=== PATIENT | female | born 1965 | race Caucasian/White ===

== ENCOUNTER 2022-08-15 06:28 | Day surgery (SDC) | payer OTHER ==
[2022-08-15] MEDS: Ringers Lactate 1,000 ML IV ONE ×2 (06:45→07:51)
[2022-08-15] MEDS ORDERED: OXYMETAZOLINE HCL 0.05% 15ML NAS ONE ×2 (07:04→07:33)
[2022-08-15] MEDS ORDERED: FENTANYL CITR 100 MCG/2 ML ONE (07:20)
[2022-08-15] MEDS ORDERED: propofoL 200 MG/20 ML VIAL IV ONE (07:20)
[2022-08-15] MEDS ORDERED: ONDANSETRON 4 MG/2 ML VIAL ONE (07:21)
[2022-08-15] MEDS ORDERED: MIDAZOLAM HCL 2 MG/2 ML INJ ONE (07:21)
[2022-08-15] MEDS ORDERED: ROCURONIUM 50 MG/5 ML VIAL IV ONE (07:21)
[2022-08-15] MEDS ORDERED: LIDOCAINE 2% MPF 5 ML VIAL ONE (07:22)
[2022-08-15] MEDS ORDERED: LIDOCAINE HCL/EPINEPHRINE 20 ML MDV ONE (07:33)
[2022-08-15] MEDS ORDERED: EPINEPHRINE/PF 1 MG/ML AMP ONE (07:33)
[2022-08-15] MEDS ORDERED: BACITRACIN OINTMENT 14 GM TUBE TOP ONE (07:33)
[2022-08-15] MEDS ORDERED: dexAMETHasone 10 MG/ML VIAL ONE (07:50)
[2022-08-15] MEDS ORDERED: SUGAMMADEX SODIUM 200 MG/2 ML VIAL IV ONE (07:57)
[2022-08-15] MEDS ORDERED: KETOROLAC 30 MG/ML INJ ONE (08:19)
[2022-08-15 08:46] VITALS: O2SAT 100
[2022-08-15 09:04] VITALS: BP 128/75; TEMP 97.2
--- NOTE | 2022-08-15 09:47 | P.OP ---
Supervisor Engine Assembly: NONE,NONE Preoperative diagnosis: Other disease of the pharynx, eustachian tube dysfunction Postoperative diagnosis: Same, & abnormal auditory perceptions and other specified disorders of nose Primary procedure: Nasal endoscopy with dilation of eustachian tube, bilateral Anesthesia: General Estimated blood loss: None Specimen: None Findings: edema of ET opening, cobblestoning of nasal and pharyngeal mucosa Operative Technique: Patient was brought to the operating room. She was placed under general anesthesia via orotracheal intubation. The head of bed was turned 90 degrees. A 0 degree endoscope used was used to perform a bilateral nasal endoscopy. The inferior nasal turbinates were well decongested. There was no significant septal deviation. The middle meatus appeared normal with no active drainage or evidence of polyps. The middle turbinate appeared normal. The sphenoethmoid recess was unremarkable with no active drainage or abnormal masses. The nasopharynx appeared to have minimal residual adenoid tissue. The fossa of Rosenmuller was clear. The mucosa of the turbinates nasopharynx and torus tubarius were noted to be cobblestoned. The eustachian tube openings were edematous. A 30 degree rigid endoscope was then used for better visualization of the eustachian tube openings. These appeared completely obstructed. The balloon dilation device was advanced under 30 degree rigid endoscope visualization into the left nasopharynx. The tip was rotated and placed at the opening of the left eustachian tube. The balloon was then gently advanced into the eustachian tube. No significant resistance was noted but the balloon was only advanced approximately 90% of its length. Further advancement was restricted by palpable resistance/pressure. The device was then slowly inflated to a pressure of 2 tyra. No untoward findings were noted and the inflation proceeded to 10 tyra. This was then held for 2 minutes and the balloon was deflated and carefully withdrawn avoiding injury to the surrounding mucosa. There was no significant bleeding noted and direct visualization of the eustachian tube opening demonstrated no evidence of acute injury. A similar procedure was then performed on the right side with similar findings. The balloon dilation device was advanced under 30 degree rigid endoscope visualization into the left nasopharynx. The tip was rotated and placed at the opening of the left eustachian tube. The balloon was then gently advanced into the eustachian tube. No significant resistance was noted but the balloon was only advanced approximately 90% of its length. Further advancement was restricted by palpable resistance/pressure. The device was then slowly inflated to a pressure of 2 tyra. No untoward findings were noted and the inflation proceeded to 10 tyra. This was then held for 2 minutes and the balloon was deflated and carefully withdrawn avoiding injury to the surrounding mucosa. There was no significant bleeding noted and direct visualization of the eustachian tube opening demonstrated no evidence of acute injury. After dilation of the right side, photodocumentation of the dilated area was performed. The procedure was concluded and the patient was returned to care of anesthesia for awakening and transportation to the recovery room Complications: None Implants: None Fluids & blood products: See anesthesia record Transferred to: Recovery Room (None) Condition: Good
--- NOTE | 2022-08-18 17:19 | EKG ---
Test Date: 2022-08-14 Test Time: 11:51:28 Telegraph Inspector: JULES MEASUREMENT RESULTS: Intervals: Rate: 51 FL: 162 QRSD: 78 QT: 436 QTc: 401 [place]: P: 71 FL: 162 QRS: 78 T: 60 INTERPRETIVE STATEMENTS: Sinus bradycardia Otherwise normal ECG No previous ECG available for comparison Electronically Signed On 08-18-22 17:13:05 CDT by Martir Nelson
== END 2022-08-15 09:23 | disposition home or self-care (01) ==
LOC: OR 06:28
PROVIDERS: ATTEND Otolaryngology
PROC: 097F8ZZ Dilation of Right Eustachian Tube, Via Natural or Artificial Opening Endoscopic (ICD-10-PCS; 2022-08-15)
PROC: 097G8ZZ Dilation of Left Eustachian Tube, Via Natural or Artificial Opening Endoscopic (ICD-10-PCS; principal; 2022-08-15 07:30)
DX: H60-H95 Diseases of the ear and mastoid process (principal); H93.293 Other abnormal auditory perceptions, bilateral; J34.89 Other specified disorders of nose and nasal sinuses; J39.2 Other diseases of pharynx
CPT/HCPCS: 93005; 69706; J2704; J2001; J2250; J3010; J1100; J2405; J7120; J0171

== ENCOUNTER 2022-12-30 07:09 | Emergency (ER) | payer OTHER ==
--- OUTSIDE RECORDS SUMMARY | 2022-12-30 07:12 | XMS REPORT | Continuity of Care Document ---
:1965 Author Organization [facility] t Address [address] [place] [address] Care Team Providers Name Role Phone Nieves Rivas Attending Clinician Unavailable Tennille Freitas Attending Clinician Unavailable Tennille Freitas Admitting Clinician Unavailable Physician, No Primary or Family Admitting Clinician Unavaila ble Payers Payer Name Policy Type Policy Number Effective Date Expiration Date S ource Problems This patient has no known problems. Allergies, Adverse Reactions, Alerts Allergy Allergy Status Severity Reaction(s) Onset Inactive Treating Comm ents Source Name Type Date Date Clinician tree nut DA Active [place] 2009-02 [facility] [place] tree nut FA Active [place] 2009-02 [facility] tree nut FA Active [place] ANAPHYLATIC 2009-02 [facility] 03-12 [place] 00:00: d 00 [facility] Medications This patient has no known medications. Procedures This patient has no known procedures. Encounters Start End Encounter Admission Attending Care Care Encounter Source Date/Time Date/Time Type Type Clinicians Facility Department ID 2022-11-19 Outpatient VAUGHN Rivas [facility] [id number] [facility] 08:17:01 Nieves [id number] [facility] 2022-04-11 2022-04-11 Outpatient AGGIE Merida [id number] [facility] 12:00:00 12:00:00 Tennille Ríos [facility] 2021-12-31 2021-12-31 Outpatient RYAN Merida PADDY [id number] [facility] 12:00:00 12:00:00 Tennille Ramírez [facility] 2020-12-24 2020-12-24 Outpatient RYAN Merida PADDY [id number] [facility] 12:00:00 12:00:[address] [place] [address] 2019-12-19 2019-12-19 Outpatient JIGNESH Freitas LEIGHANN THOMASON [id number] [facility] 12:00:00 12:00:00 Tennille 12 [facility] Results This patient has no known results.
--- NOTE | 2022-12-30 08:03 | RAD REPORT ---
EXAM DESCRIPTION: RAD - Knee Right 2 View - 12/30/2022 7:54 am CLINICAL HISTORY: Right knee pain FINDINGS: No fracture or dislocation is seen. No bone or joint abnormality is displayed
--- NOTE | 2022-12-30 08:04 | RAD REPORT ---
EXAM DESCRIPTION: RAD - Knee Left 2 View - 12/30/2022 7:54 am CLINICAL HISTORY: Left knee pain FINDINGS: A limited two-view series obtained No fracture or dislocation is seen. A moderate joint effusion If the patient continues to have symptoms to suggest an occult fracture, ligamentous or meniscal inju ry then MRI would be recommended
--- NOTE | 2022-12-30 08:28 | ER ---
Nurse's Notes [facility] Name: Vandana Ray Age: 57 yrs Sex: Female : 1965 Arrival Date: 12/30/2022 Time: 07:09 Bed DIS5 Private MD: Diagnosis: Mechanical fall, left knee effusion, bilateral knee contusions Presentation: 12/30 07:27 Chief complaint: Patient states: Fell yesterday over back gate onto both knees, walked jl7 yesterday, woke this morning with severe pain to left knee. Coronavirus screen: At this time, the client does not indicate any symptoms associated with coronavirus-19. Ebola Screen: No symptoms or risks identified at this time. Initial Sepsis Screen: Does the patient meet any 2 criteria? No. Patient's initial sepsis screen is negative. Does the patient have a suspected source of infection? No. Patient's initial sepsis screen is negative. Risk Assessment: Do you want to hurt yourself or someone else? Patient reports no desire to harm self or others. Onset of symptoms was December 29, 2022. 07:27 Method Of Arrival: Ambulatory jl7 07:27 Acuity: AFIA 4 jl7 Triage Assessment: 07:28 General: Appears in no apparent distress. uncomfortable, Behavior is calm, cooperative, jl7 appropriate for age. Pain: Complains of pain in left knee Pain currently is 0 out of 10 on a pain scale. at worst was 10 out of 10 on a pain scale. Musculoskeletal: Swelling present in left knee. Injury Description: swelling. Historical: - Allergies: 07:28 No Known Allergies; jl7 - Home Meds: 07:28 valsartan 40 mg oral tablet 0.5 tabs [Active]; triamterene-hydrochlorothiazide Oral jl7 [Active]; - PMHx: 07:28 Hypertensive disorder; jl7 - Immunization history:: Adult Immunizations up to date. - Social history:: Smoking status: Patient denies any tobacco usage or history of. Vital Signs: 07: BP 131 / 94; Pulse 68; Resp 17; Temp 98.4; Pulse Ox 95% ; Weight 88.9 kg; Height 5 ft. jl7 10 in. ; Pain 10/; 07:27 Body Mass Index 28.12 (88.90 kg, 177.8 cm) jl7 07:27 Pain Scale: Adult jl7 ED Course: 07:18 Patient arrived in ED. im 07:26 Trisha Gilbert MD is Attending Physician. sp3 07:28 Triage completed. jl7 07:31 Arm band placed on right wrist. jl7 07:56 Knee Left 2 View XRAY In Process Unspecified. EDMS 07:56 Knee Right 2 View XRAY In Process Unspecified. EDMS 08:28 Yogesh Kwan MD is Referral Physician. sp3 08:54 Patient has correct armband on for positive identification. Provided Education on: use jl7 of knee immobilizer. 08:54 No provider procedures requiring assistance completed. Patient did not have IV access jl7 during this emergency room visit. 08:55 Knee immobilizer applied on left knee. jl7 Administered Medications: No medications were administered Medication: 08:54 VIS not applicable for this client. jl7 Outcome: 08:28 Discharge ordered by MD. sp3 08:54 Discharged to home ambulatory, jl7 08:54 Condition: stable 08:54 Discharge instructions given to patient, Instructed on discharge instructions, follow up and referral plans. medication usage, Demonstrated understanding of instructions, follow-up care, medications, Prescriptions given X 1, 08:55 Patient left the ED. jl7 Signatures: Dispatcher [employer] Juliette Abbasi RN RN jl7 Trisha Gilbert MD MD sp3 Wen Miguel im
--- NOTE | 2022-12-30 08:28 | EDPHYS ---
Physician Documentation [facility] Name: Vandana Ray Age: 57 yrs Sex: Female : 1965 Arrival Date: 12/30/2022 Time: 07:09 Bed DIS5 Private MD: ED Physician Trisha Gilbert HPI: 12/30 07:50 This 57 yrs old Female presents to ER via Ambulatory with complaints of Knee Injury - sp3 both. 07:50 57-year-old female with history of hypertension presents with bilateral knee pain left sp3 greater than right since yesterday evening where she had a mechanical fall when she tripped over a baby gate and landed on both knees on a hard tile floor. She denies any other injury including head or upper body. She was able to ambulate yesterday but awoke this morning with significant swelling on the left side with increasing pain and also increasing pain on the right side. She denies any distal symptoms including numbness or tingling or decreased motor function. Review of systems otherwise negative. She denies headache, neck pain, chest pain, shortness of breath, abdominal pain, vomiting, diarrhea, syncope, near syncope, loss of bowel or bladder control, or any other signs or symptoms at this time.. Historical: - Allergies: 07:28 No Known Allergies; jl7 - Home Meds: 07:28 valsartan 40 mg oral tablet 0.5 tabs [Active]; triamterene-hydrochlorothiazide Oral jl7 [Active]; - PMHx: 07:28 Hypertensive disorder; jl7 - Immunization history:: Adult Immunizations up to date. - Social history:: Smoking status: Patient denies any tobacco usage or history of. ROS: 07:51 Constitutional: Negative for fever, chills, and weight loss, Eyes: Negative for injury, sp3 pain, redness, and discharge, ENT: Negative for injury, pain, and discharge, Neck: Negative for injury, pain, and swelling, Cardiovascular: Negative for chest pain, palpitations, and edema, Respiratory: Negative for shortness of breath, cough, wheezing, and pleuritic chest pain, Abdomen/GI: Negative for abdominal pain, nausea, vomiting, diarrhea, and constipation, Back: Negative for injury and pain, Skin: Negative for injury, rash, and discoloration, Neuro: Negative for headache, weakness, numbness, tingling, and seizure, Psych: Negative for depression, anxiety, suicide ideation, homicidal ideation, and hallucinations, Allergy/Immunology: Negative for hives, rash, and allergies, Endocrine: Negative for neck swelling, polydipsia, polyuria, polyphagia, and marked weight changes, Hematologic/Lymphatic: Negative for swollen nodes, abnormal bleeding, and unusual bruising, 07:51 All other systems are negative, Exam: 07:51 Constitutional: This is a well developed, well nourished patient who is awake, alert, sp3 and in no acute distress. Head/Face: Normocephalic, atraumatic. Chest/axilla: Normal chest wall appearance and motion. Nontender with no deformity. No lesions are appreciated. Cardiovascular: Regular rate and rhythm with a normal S1 and S2. No gallops, murmurs, or rubs. Normal PMI, no JVD. No pulse deficits. Respiratory: Lungs have equal breath sounds bilaterally, clear to auscultation and percussion. No rales, rhonchi or wheezes noted. No increased work of breathing, no retractions or nasal flaring. Abdomen/GI: Soft, non-tender, with normal bowel sounds. No distension or tympany. No guarding or rebound. No evidence of tenderness throughout. Back: No spinal tenderness. No costovertebral tenderness. Full range of motion. Skin: Warm, dry with normal turgor. Normal color with no rashes, no lesions, and no evidence of cellulitis. Neuro: Awake and alert, GCS 15, oriented to person, place, time, and situation. Cranial nerves II-XII grossly intact. Motor strength 5/5 in all extremities. Sensory grossly intact. Cerebellar exam normal. Normal gait. Psych: Awake, alert, with orientation to person, place and time. Behavior, mood, and affect are within normal limits. 07:51 Musculoskeletal/extremity: Mild effusion noted on the left knee. Right knee exam is normal. Full range of motion is present however on the left side there is pain on extension. Axial load demonstrates no abnormality. There is no laxity in drawer movements. Distal pulses are present and neurologically intact.. Vital Signs: 07:27 BP 131 / 94; Pulse 68; Resp 17; Temp 98.4; Pulse Ox 95% ; Weight 88.9 kg; Height 5 ft. jl7 10 in. ; Pain 12/02; 07:27 Body Mass Index 28.12 (88.90 kg, 177.8 cm) jl7 07:27 Pain Scale: Adult jl7 MDM: 07:50 Patient medically screened. sp3 07:52 Data reviewed: vital signs, nurses notes, radiologic studies. ED course: 57-year-old sp3 female with bilateral knee pain and contusions with left-sided knee effusion. I am not highly suspicious for fracture however internal derangement is a possibility. I have gone over possibilities including structural damage as opposed to knee effusion due to bleeding and inflammation. We will place in knee immobilizer after x-rays and if negative we will safely discharge patient home with orthopedic follow-up and outpatient MRI as indicated. Diclofenac for pain control.. 08:27 ED course: Right knee x-ray is normal. Left knee x-ray demonstrates moderate effusion sp3 consistent with clinical exam. Will place in knee immobilizer and have patient follow-up with orthopedics as well as ensure patient has proper crutch training. Diclofenac p.o. as needed for pain control and patient knows to ice her knee.. 12/30 07:26 Order name: Knee Left 2 View XRAY; Complete Time: 08:05 sp3 12/30 07:26 Order name: Knee Right 2 View XRAY; Complete Time: 08:05 sp3 12/30 08:27 Order name: Knee Immobilizer: Left knee; Complete Time: 08:53 sp3 12/30 08:27 Order name: Crutch Training: Pt has own crutches; Complete Time: 08:39 sp3 Administered Medications: No medications were administered Disposition Summary: 12/30/22 08:28 Discharge Ordered Notes: Location: Home sp3 Condition: Stable sp3 Diagnosis - Mechanical fall, left knee effusion, bilateral knee contusions sp3 Followup: sp3 - With: Yogesh Kwan MD - When: Upon discharge from the Emergency Department - Reason: Recheck today's complaints Discharge Instructions: - Discharge Summary Sheet sp3 - Knee Effusion sp3 - How to Use a Knee Immobilizer sp3 Forms: - Medication Reconciliation Form sp3 - Thank You Letter sp3 - Antibiotic Education sp3 - Prescription Opioid Use sp3 - Patient Portal Instructions sp3 - Leadership Thank You Letter sp3 Prescriptions: - Diclofenac Sodium 75 mg Oral Tablet Sustained Release - take 1 tablet ORAL route 2 times per day; 30 tablet; Refills: 0, Product sp3 Selection Permitted Signatures: Dispatcher [employer] Juliette Abbasi RN RN jl7 Trisha Gilbert MD MD sp3
[2022-12-30 08:59] VITALS: BP 131/94; TEMP 98.4; O2SAT 95
== END 2022-12-30 08:55 | disposition home or self-care (01) ==
LOC: ER 07:09
DX: M25.462 Effusion, left knee (principal); S80.02XA Contusion of left knee, initial encounter; S80.01XA Contusion of right knee, initial encounter; W18.09XA Striking against other object with subsequent fall, initial encounter; I10 Essential (primary) hypertension
CPT/HCPCS: 99283